=== PATIENT | male | born 1995 | race Caucasian/White ===

== ENCOUNTER 2017-04-11 18:56 | Emergency (ER) | payer OTHER ==
[2017-04-11] MEDS ORDERED: Ibuprofen TAB* 600 MG PO ONE (19:20)
--- NOTE | 2017-04-11 19:57 | RAD ---
HISTORY: Cough, fever COMPARISONS: None VIEWS: 2: Frontal dual-energy and lateral views of the chest. FINDINGS: CARDIOMEDIASTINAL SILHOUETTE: The cardiomediastinal silhouette is normal. JESSE: The jesse are normal. PLEURA: The costophrenic angles are sharp. No pleural abnormalities are noted. LUNG PARENCHYMA: The lungs are clear. The minimal opacification of the right cardio phrenic angle is felt to be an artifact of the pectus deformity. ABDOMEN: The upper abdomen is clear. There is no subphrenic gas. BONES AND SOFT TISSUES: There is mild pectus deformity OTHER: None. IMPRESSION: NO ACTIVE CARDIOPULMONARY DISEASE.
--- NOTE | 2017-04-11 20:16 | ED ---
Respiratory - HPI Summary HPI Summary: 21M presents with cough, shortness of breath, chest pain with coughs, sinus congestion, headache, and muscle aches. He also admits to diarrhea and generalized abdominal pain. He stays may have fever but never took temp. He took tessalon and dayquil for symptoms without relief. cough is a dry cough. says headache wraps around head. Denies any n/v. Denies any ear pain. His uncle had similar symptoms a week ago. He does smoke. He denies any new foods or recent antibiotic usage. He states cough is what is bothering him the most. - History of Current Complaint Chief Complaint: EDGeneral Stated Complaint: HEADACHE/CHEST PAIN/SOB Time Seen by Provider: 04/11/17 19:13 Pain Intensity: 5 - Allergy/Home Medications Allergies/Adverse Reactions: Allergies Allergy/AdvReac Type Severity Reaction Status Date / Time No Known Allergies Allergy Verified 04/11/17 19:16 PMH/Surg Hx/FS Hx/Imm Hx Endocrine/Hematology History: Denies: Hx Anticoagulant Therapy Respiratory History: Denies: Hx Asthma Infectious Disease History: No Infectious Disease History: Denies: Traveled Outside the [place] in Last 30 Days - Family History Known Family History: Negative: Respiratory Disease - Social History Alcohol Use: Occasionally Substance Use Type: Reports: None Smoking Status (MU): Current Some Day Smoker Review of Systems Positive: Fever Positive: Chest Pain - with cough Positive: Shortness Of Breath - with cough, Cough Positive: Abdominal Pain, Diarrhea. Negative: Vomiting, Nausea All Other Systems Reviewed And Are Negative: Yes Physical Exam Triage Information Reviewed: Yes Vital Signs On Initial Exam: Initial Vitals Temp Pulse Resp BP Pulse Ox 99.3 F 93 16 144/77 96 04/11/17 18:57 04/11/17 18:57 04/11/17 18:57 04/11/17 18:57 04/11/17 18:57 Vital Signs Reviewed: Yes Appearance: Positive: Ill-Appearing Skin: Positive: Warm, Dry Head/Face: Positive: Normal Head/Face Inspection Eyes: Positive: Normal, EOMI, NORIS, Conjunctiva Clear ENT: Positive: Pharyngeal erythema - post nasal drip present, Nasal congestion, Nasal drainage, TMs normal. Negative: Tonsillar swelling, Tonsillar exudate, Trismus Neck: Positive: Supple, Nontender, No Lymphadenopathy Respiratory/Lung Sounds: Positive: Clear to Auscultation, Breath Sounds Present Cardiovascular: Positive: Normal, RRR, Pulses are Symmetrical in both Upper and Lower Extremities Abdomen Description: Positive: Soft, Other: - mild diffuse tenderness Bowel Sounds: Positive: Present - [place] Coma Scale Coma Scale Total: 15 Diagnostics - Vital Signs Vital Signs Temp Pulse Resp BP Pulse Ox 04/11/17 19:18 99.3 F 93 18 144/77 98 04/11/17 18:57 99.3 F 93 16 144/77 96 - Laboratory Lab Statement: Any lab studies that have been ordered have been reviewed, and results considered in the medical decision making process. - Radiology chest Xray Interpretation: No Acute Changes Radiology Interpretation Completed By: Radiologist Disposition - Course Course Of Treatment: 21M presents with flu like illness for 2 days. admits to cough, SOB and chest pain with cough, headache, nasal congestion, sore throat, generalized abd pain, and diarrhea. states probably had fever. uncle has similiar symptoms. taking tessalon and dayquil without relief. on exam lungs some upper resp sounds. throat post nasal drip present, abdomen diffusely tender. afebrile, chest xray normal. has flu like illness. will treat with robitussin AC and flonase. patient understands and agrees [facility] plan - Differential Dx - Cardiopulmonary Differential Diagnoses - Cardiopulmonary: Bronchitis, Influenza, Lower Resp Infection - Diagnoses Provider Diagnoses: Upper respiratory infection Discharge - Discharge Plan Condition: Good Disposition: HOME Prescriptions: Fluticasone NASAL SPRAY 50MCG* [Flonase NASAL SPRAY 50MCG*] 2 spray BOTH NARES DAILY #1 btl guaiFENesin/CODIEN 100MG-10MG* [Robitussin AC 100Mg-10Mg*] 5 ml PO Q6H PRN #100 ml MDD 20ml PRN Reason: Cough Patient Education Materials: Upper Respiratory Infection (ED) Forms: *Work Release Referrals: [facility] [Outside] Additional Instructions: Use cough suppressant 5ml every 6 hours as needed for cough Use intranasal steroid one spray each nostril twice a day Use saline in the nose for nasal congestion, can also get Sudafed at pharmacy counter for nasal congestion Use humidifier or place warm bowls of water around the room for cough Take Tylenol or ibuprofen for pain every 6 hours Return to ED if develop any new or worsening symptoms
[2017-04-11 20:27] VITALS: BP 130/79
== END 2017-04-11 20:27 | disposition home or self-care (01) ==
LOC: ED 18:56
DX: J06.9 Acute upper respiratory infection, unspecified (principal); R05 Cough; R07.9 Chest pain, unspecified; R51 Headache; R19.7 Diarrhea, unspecified; R50.9 Fever, unspecified; Z72.0 Tobacco use
CPT/HCPCS: 71020; 99282; A9270-GY

== ENCOUNTER 2021-08-11 21:07 | Inpatient (IN) ==
[2021-08-11] MEDS ORDERED: Thiamine 100 MG/ML 2 ml VIAL (200 mg) IM ONE (21:58)
[2021-08-11] MEDS: Multivitamins/Minerals TAB PO SCH (23:13)
[2021-08-11 23:46] LABS: ABS Lymphocytes 1.5 10^3/ul (1.0-4.8); ABS Monocytes 0.7 10^3/ul (0-0.8); ABS Neutrophils 10.3 10^3/ul (1.5-7.7); Eosinophil % 0.2 %; Hematocrit 43 % (42-52); Hemoglobin 14.7 g/dL (14.0-18.0); Lymphocyte % 12.3 %; Mean Corpuscular HGB Conc 34 g/dL (31-36); Mean Corpuscular Hemoglobin 30 pg (27-31); Mean Corpuscular Volume 89 fL (80-94); Mean Platelet Volume 7.9 fL (7.4-10.4); Platelet Count 209 10^3/uL (150-450); Red Blood Count 4.85 10^6 /uL (4.18-5.48); Red Cell Distribution Width 13 % (10-15); White Blood Count 12.5 10^3/uL (3.5-10.8)
[2021-08-12 00:02] LABS: ALT 36 U/L (7-52); AST 27 U/L (13-39); Albumin 4.8 g/dL (3.2-5.2); Albumin/Globulin Ratio 1.7 (1-3); Alkaline Phosphatase 67 U/L (35-149); Anion Gap 8 mmol/L (2-11); Blood Urea Nitrogen 7 mg/dL (6-24); CO2 Carbon Dioxide 28 mmol/L (22-32); Calcium 9.6 mg/dL (8.6-10.3); Chloride 100 mmol/L (101-111); Globulin 2.8 g/dL (2-4); Glucose 113 mg/dL (70-100); Potassium 3.6 mmol/L (3.5-5.0); Sodium 136 mmol/L (135-145); Total Protein 7.6 g/dL (6.4-8.9)
[2021-08-12 00:09] LABS: Urine Appearance Clear; Urine Bilirubin Negative (Negative); Urine Blood Negative (Negative); Urine Color Straw; Urine Glucose Negative (Negative); Urine Ketones Negative (Negative); Urine Nitrite Negative (Negative); Urine Protein Negative (Negative); Urine Specific Gravity 1.003 (1.002-1.030); Urine Urobilinogen Negative (Negative)
[2021-08-12 00:11] LABS: Urine Benzodiazepine Screen None Detected (None Detect); Urine Cannabinoids Screen Presumptive Positive (None Detect); Urine Opiates Screen None Detected (None Detect)
[2021-08-12 00:29] LABS: Acetaminophen < 15 mcg/mL; Alcohol, S 118 mg/dL (<13); Salicylate < 2.50 mg/dL (<30)
[2021-08-12 00:44] LABS: TSH Ultra Thyroid Stim Horm 3.45 mcIU/mL (0.34-5.60)
[2021-08-12] MEDS ORDERED: Nicotine PATCH 21 MG/24 HR PATCH TRANSDERM ONE (06:45)
[2021-08-12 08:09] LABS: Rapid COVID-19 Molecular Undetected (Undetected)
[2021-08-12] MEDS ORDERED: Multivitamins/Minerals TAB PO SCH (09:00)
[2021-08-12] MEDS: Multivitamins/Minerals TAB PO SCH (09:15)
[2021-08-12] MEDS: ATOMOXETINE 40 MG PO SCH (14:21)
[2021-08-12] MEDS ORDERED: Nicotine PATCH 21 MG/24 HR PATCH ONE (14:43)
[2021-08-12] MEDS: Nicotine Lozenge mini 4 MG LOZNG.MINI MT PRN (15:27)
[2021-08-12] MEDS: GUANFACINE 1 MG PO SCH (20:38)
[2021-08-13] MEDS: ATOMOXETINE 40 MG PO SCH (07:41)
[2021-08-13] MEDS: GUANFACINE 1 MG PO SCH (07:42)
[2021-08-13 08:09] VITALS: BP 156/84
[2021-08-13] MEDS ORDERED: Multivitamins/Minerals TAB PO SCH (09:00)
[2021-08-13] MEDS ORDERED: Nicotine PATCH 21 MG/24 HR PATCH TRANSDERM SCH (09:00)
[2021-08-13] MEDS: Nicotine Lozenge mini 4 MG LOZNG.MINI MT PRN ×2 (09:38→12:32)
== END 2021-08-13 16:13 | disposition home or self-care (01) | DRG 755 ==
LOC: ED 21:07 → BSU 08-12 07:35
PROVIDERS: ADMIT Psychiatry & Neurology Psychiatry; ATTEND Psychiatry & Neurology Psychiatry